=== PATIENT | female | born 1980 | race Caucasian/White ===

== ENCOUNTER 2016-12-03 11:15 | Emergency (ER) | payer BC ==
[~2016-12-03] VITALS: Ht 172.7 cm; Wt 75.7 kg
[~2016-12-03 11:15] MED LIST: ALBUTEROL SULF8.5 GM IH; CARAFATE1 GM PO; CLARITIN10 MG PO; LAMICTAL25 MG; LAMOTRIGINE200 MG PO; LEVETIRACETAM500 MG PO; MONTELUKAST SOD10 MG PO; NAPROSYN500 MG PO; OMEPRAZOLE20 MG PO; VICODIN,LORT1 TABLET PO
[2016-12-03] MEDS ORDERED: LAMOTRIGINE150 MG PO (11:24)
[2016-12-03] MEDS ORDERED: AZITHROMYCIN250 MG PO (11:25)
[2016-12-03 11:51] LABS: EOSINOPHIL (%) 0.5 % (0-5); HEMATOCRIT 35.2 % (36.0-46.0); IMMATURE GRANULOCYTE (%) 0.4 % (0.0-0.7); IMMATURE GRANULOCYTE COUNT 0.3 K/uL; LYMPHOCYTE COUNT 1.9 K/uL (1.0-2.8); MCH 28.3 PG (29.0-34.0); MCV 85.9 FL (83-99); MEAN PLAT.VOLUME 8.9 uM^3 (9.5-12.4); MONOCYTE (%) 7.7 % (3-12); MONOCYTE COUNT 0.6 K/uL (0-0.8); NEUTROPHIL (%) 67.4 % (45-76); NEUTROPHIL COUNT 5.4 K/uL (1.8-6.4); PLATELET COUNT 263 K/uL (156-360); RBC DIS.WIDTH-CV 13.5 % (11.8-14.6); RBC DIS.WIDTH-SD 41.3 % (39-53); WHITE BLOOD COUNT 7.9 K/uL (4.1-10.2)
[2016-12-03 12:02] LABS: CHLORIDE 105 mEq/L (99-109); POTASSIUM 3.6 mEq/L (3.7-5.4); SODIUM 141 mEq/L (136-147)
[2016-12-03 12:04] LABS: GLUCOSE 87 mg/dL (70-99)
[2016-12-03 12:05] LABS: ANION GAP 9 MEQ/L (2-14)
[2016-12-03 12:06] LABS: TOTAL BILIRUBIN 0.2 mg/dL (0.0-1.0)
[2016-12-03 12:07] LABS: ALKALINE PHOSPHATASE 65 IU/L (3-129)
[2016-12-03 12:08] LABS: GFR ESTIMATE (CALCULATED) > 59 mL/min/
[2016-12-03 12:09] LABS: UREA NITROGEN (BUN) 11 mg/dL (9-23)
[2016-12-03 12:11] LABS: LIPASE 21 U/L (1.0-51.0)
[2016-12-03 12:14] LABS: TROP-I INTERPRETATION NEGATIVE; TROPONIN-I < 0.01 ng/mL (0.0-0.30)
[2016-12-03 12:18] LABS: QUANTITATIVE HCG < 4.0 MIU/ML
[2016-12-03 13:01] LABS: ADD MIUA? YES; BILIRUBIN NEGATIVE; BLOOD SMALL; COLOR YELLOW ((YELLOW)); GLUCOSE (STRIP) NEGATIVE; KETONES NEGATIVE; LEUKOCYTES NEGATIVE; NITRITE NEGATIVE; PROTEIN (STRIP) NEGATIVE; SPECIFIC GRAVITY 1.015 (1.000-1.030); UROBILINOGEN 0.2 MG/DL (0.2-1.0)
[2016-12-03 13:07] LABS: INFLUENZA A VIRAL ANTIGEN NEGATIVE; INFLUENZA B VIRAL ANTIGEN NEGATIVE
[2016-12-03 13:17] LABS: BACTERIA RARE /HPF; EPITHELIAL CELLS 2+ /HPF; MUCUS TRACE /LPF; RED BLOOD CELLS 0-5 /HPF (0-5); UCUL ADDED? NO; WHITE BLOOD CELLS 0-5 /HPF (0-5)
[2016-12-03 13:59] VITALS: BP 97/58
== END 2016-12-03 14:19 | disposition home or self-care (01) ==
LOC: EME 11:15
PROVIDERS: Emergency Medicine; Physician Assistant
DX: R10.13 Epigastric pain (principal); R07.89 Other chest pain; J45.909 Unspecified asthma, uncomplicated
CPT/HCPCS: 71020; 76705; 80053; 81003; 83690; 84484; 84702; 85025; 87502; 93005; 99281; 99284

== ENCOUNTER 2017-06-02 06:43 | Day surgery (SDC) | payer BC ==
[~2017-06-02] VITALS: Ht 172.7 cm; Wt 69.4 kg
[~2017-06-02 06:43] MED LIST changes: +AZITHROMYCIN250 MG PO; +FLONASE16 G1 BOTH NARES; +KEPPRA1000 MG PO; +LAMICTAL150 M1 PO; +LAMOTRIGINE150 MG PO
[2017-06-02 07:10] VITALS: BP 131/77
[2017-06-02 08:19] LABS: METH RESISTANT S AUREUS PCR POSITIVE (NEGATIVE)
[2017-06-02 08:21] LABS: PROBE CHECK PASS
[2017-06-02] MEDS ORDERED: VICODIN 5-3001 EACH PO (08:33)
[2017-06-02] MEDS ORDERED: MOTRIN800 MG PO (08:33)
[2017-06-02 12:45] VITALS: BP 106/62
[2017-06-02 14:08] VITALS: BP 103/59
== END 2017-06-02 13:40 | disposition home or self-care (01) ==
LOC: SDC 06:43
PROVIDERS: Obstetrics & Gynecology
DX: N84.0 Polyp of corpus uteri (principal); N83.8 Other noninflammatory disorders of ovary, fallopian tube and broad ligament; N93.8 Other specified abnormal uterine and vaginal bleeding; J45.909 Unspecified asthma, uncomplicated
CPT/HCPCS: 87641; 88307; J0131; J0690; J1170; J1885; J2175; J2250; J3010; S0020